=== PATIENT | female | born 1965 | race Caucasian/White ===

== ENCOUNTER 2017-02-08 18:07 | Emergency (ER) | payer BC ==
[2017-02-08 18:18] VITALS: BP 147/106
--- NOTE | 2017-02-08 18:20 | UC ---
Head Injury HPI - HPI Summary HPI Summary: 51 YEAR OLD FEMALE PRESENTS WITH HEAD LACERATION, NAUSEA, DIZZINESS AND UNSTEADY GATE. I WILL SEND HER TO ER TO RULE OUT CRANIAL BLEED. - History Of Current Complaint Chief Complaint: UCHeadInjury Stated Complaint: FELL-HEAD LAC Time Seen by Provider: 02/08/17 18:19 Hx Obtained From: Patient Hx Last Menstrual Period: 2YRS Onset/Duration: Sudden Onset Severity Currently: Moderate Severity Initially: Moderate Pain Scale Used: 0-10 Numeric - 5 - Allergies/Home Medications Allergies/Adverse Reactions: Allergies Allergy/AdvReac Type Severity Reaction Status Date / Time Sulfa Antibiotics Allergy Swelling Verified 02/08/17 18:18 Of Face,Lips,& Throat COCONUT Allergy Swelling Uncoded 02/08/17 18:18 Of Face,Lips,& Throat Home Medications: Home Medications NK [No Home Medications Reported] 02/08/17 [History Confirmed 02/08/17] PMH/Surg Hx/FS Hx/Imm Hx Previously Healthy: Yes - Surgical History Surgical History: Yes Surgery Procedure, Year, and Place: ABDOMINAL, BOWEL SURGERIES X 20 - Social History Alcohol Use: Occasionally Substance Use Type: Marijuana Substance Use Comment - Amount & Last Used: 1600 Smoking Status (MU): Never Smoked Tobacco - Immunization History Most Recent Tetanus Shot: 2016 Review of Systems Constitutional: Fatigue Skin: Other - HEAD LACERATION Eyes: Negative ENT: Negative Respiratory: Negative Cardiovascular: Negative Gastrointestinal: Negative Genitourinary: Negative Motor: Negative Neurovascular: Negative Musculoskeletal: Negative Neurological: Headache Psychological: Negative All Other Systems Reviewed And Are Negative: Yes Physical Exam Triage Information Reviewed: Yes Vital Signs: Initial Vital Signs Temp 37.0 C 02/08/17 18:11 Pulse 98 02/08/17 18:11 Resp 20 02/08/17 18:11 BP 147/106 02/08/17 18:11 Vital Signs Reviewed: Yes Eye Exam: Normal ENT Exam: Normal Dental Exam: Normal Neck exam: Normal Neck: Positive: 1 Respiratory Exam: Normal Cardiovascular Exam: Normal Abdominal Exam: Normal Musculoskeletal Exam: Normal Neurological Exam: Normal Psychological Exam: Normal Skin: Positive: Other - HEAD LACERATION Head Injury Course/Dx - Differential Dx/Diagnosis Provider Diagnoses: HEAD LACERATION 2.5 TO 5 CM Discharge - Discharge Plan Condition: Stable Disposition: HOME Patient Education Materials: Head Injury (ED), Concussion (ED) Referrals: Alvarado Tran MD [Primary Care Provider] - Additional Instructions: PATIENT SUGGESTED TO GO TO ER FOR HEAD INJURY
== END 2017-02-08 18:28 | disposition home or self-care (01) ==
LOC: MERGE 18:07 → UCCORT 18:07
DX: S01.91XA Laceration without foreign body of unspecified part of head, initial encounter (principal); W19.XXXA Unspecified fall, initial encounter; Y93.9 Activity, unspecified; Y92.9 Unspecified place or not applicable; R11.0 Nausea; R42 Dizziness and giddiness; R26.81 Unsteadiness on feet; Z88.2 Allergy status to sulfonamides
CPT/HCPCS: 99203; G0463